=== PATIENT | male | born 1950 | race Caucasian/White ===

== ENCOUNTER 2021-08-28 10:34 | Inpatient (IN) | payer MEDICARE, BC, OTHER ==
[2021-08-28 12:06] LABS: #Eosinphils 0.2 10x3/uL (0.0-0.5); #Monocytes 0.8 10x3/uL (0.0-1.1); %Basophils 0.6 % (0.0-2.0); %Eosinophils 2.4 % (0.0-6.0); %Lymphocytes 20.4 % (18.0-47.0); %Monocytes 12.5 % (0.0-10.0); %Neutrophils 63.8 % (40.0-75.0); Hemoglobin 13.8 g/dL (13.5-17.5); Mean Corpuscular HGB CONC 33.7 g/dL (32.0-36.0); Mean Corpuscular Hemoglobin 30.9 pg (27.0-33.0); Mean Corpuscular Volume 91.5 fl (81.2-95.1); Mean Platelet Volume 10.6 fl (7.4-10.4); Platelet Count 150 10x3/uL (150-450); Red Blood Cell (RBC) Count 4.47 10x6/uL (4.32-5.72); White Blood Cell (WBC) Count 6.2 10x3/uL (3.5-10.5)
[2021-08-28 12:15] LABS: ALT (SGPT) 12 U/L (8-55); AST (SGOT) 11 U/L (5-34); Albumin 4.1 g/dL (3.4-4.8); Alkaline Phosphatase 73 U/L (40-110); Anion Gap 12 mmol/L (10-20); BUN (Urea Nitrogen) 17 mg/dL (8.4-25.7); Bilirubin, Total 0.5 mg/dL (0.2-1.2); Calc. Creatinine Clearance 0 mL/min (70-130); Carbon Dioxide 26 mmol/L (23-31); Chloride 105 mmol/L (98-107); Globulin 2.5 g/dL (2.4-3.5); Glucose 146 mg/dL (83-110); Potassium 4.4 mmol/L (3.5-5.1); Protein, Total 6.6 g/dL (5.8-8.1); Sodium 139 mmol/L (136-145)
[2021-08-28 13:10] LABS: SARS-CoV-2 NAA Rapid Test DETECTED (NotDetected)
[2021-08-28] MEDS: Ascorbic Acid 500 mg Chewable Tablet PO SCH (20:41)
[2021-08-28] MEDS: Fish Oil 1,000 MG CAP PO SCH (20:42)
[2021-08-28] MEDS: Sacubitril 49 MG/Valsartan 51 MG TABLET PO SCH (20:42)
[2021-08-28] MEDS: Doxepin HCl 10 MG CAP PO SCH (20:42)
[2021-08-29] MEDS: Sacubitril 49 MG/Valsartan 51 MG TABLET PO SCH ×2 (08:42→21:13)
[2021-08-29] MEDS: Spironolactone 25 MG TAB PO SCH (08:42)
[2021-08-29] MEDS: Aspirin 81 mg Enteric Coated Tablet PO SCH (08:42)
[2021-08-29] MEDS: Clopidogrel Bisulfate 75 MG TAB PO SCH (08:42)
[2021-08-29] MEDS: Nebivolol HCl 5 MG TAB PO SCH (08:42)
[2021-08-29] MEDS: Atorvastatin Calcium 40 MG TAB PO SCH (08:42)
[2021-08-29] MEDS: Ascorbic Acid 500 mg Chewable Tablet PO SCH ×2 (08:42→21:14)
[2021-08-29] MEDS: Fish Oil 1,000 MG CAP PO SCH ×2 (08:42→21:14)
[2021-08-29] MEDS: Furosemide 20 MG TAB PO SCH (08:43)
[2021-08-29] MEDS ORDERED: Enoxaparin Sodium 80 MG/0.8 ML SYRINGE SC SCH (17:30)
[2021-08-29] MEDS ORDERED: Dextrose 50% Abboject 50 ML SYRINGE IVP PRN (18:45)
[2021-08-29] MEDS ORDERED: Dextrose 5% in Water 1,000 ML IV PRN (18:45)
[2021-08-29] MEDS: HumaLOG 300 UNITS/3 ML VIAL SC PRN (18:58)
[2021-08-29] MEDS: Doxepin HCl 10 MG CAP PO SCH (21:14)
[2021-08-30] MEDS: Aspirin 81 mg Enteric Coated Tablet PO SCH (08:32)
[2021-08-30] MEDS: Sacubitril 49 MG/Valsartan 51 MG TABLET PO SCH ×2 (08:33→21:02)
[2021-08-30] MEDS: Nebivolol HCl 5 MG TAB PO SCH (08:34)
[2021-08-30] MEDS: Ascorbic Acid 500 mg Chewable Tablet PO SCH ×2 (08:35→21:02)
[2021-08-30] MEDS: Fish Oil 1,000 MG CAP PO SCH ×2 (08:35→21:46)
[2021-08-30] MEDS: Atorvastatin Calcium 40 MG TAB PO SCH (08:35)
[2021-08-30] MEDS: Clopidogrel Bisulfate 75 MG TAB PO SCH (08:35)
[2021-08-30] MEDS ORDERED: Heparin 10,000 UNITS/ 10 ML VIAL ONE (10:31)
[2021-08-30] MEDS ORDERED: Nitroglycerin 50 MG/250 ML BOT 0 ML ONE (10:31)
[2021-08-30] MEDS ORDERED: Lidocaine 1% (PF) 30 ML VIAL ONE ×2 (10:31)
[2021-08-30] MEDS ORDERED: Fentanyl 100 MCG/2 ML VIAL ONE (11:14)
[2021-08-30] MEDS ORDERED: Midazolam HCl 2 mg/2 ml Vial ONE ×2 (11:14→13:07)
[2021-08-30] MEDS ORDERED: Activase 2 MG VIAL ONE (13:20)
[2021-08-30] MEDS ORDERED: Sterile Water 10 ML ONE (13:23)
[2021-08-30] MEDS ORDERED: Activase 8 MG in Sodium Chloride 0.9% 100 ML CATH SCH (13:30)
[2021-08-30] MEDS: HumaLOG 300 UNITS/3 ML VIAL SC PRN ×2 (16:57→21:49)
[2021-08-30] MEDS: Acetaminophen 500 MG TAB PO PRN (17:35)
[2021-08-30] MEDS: Ondansetron PF 4 MG/2 ML Vial IVP PRN (17:35)
[2021-08-30] MEDS: Activase 8 MG in Sodium Chloride 0.9% 100 ML CATH SCH (21:07)
[2021-08-31] MEDS: Doxepin HCl 10 MG CAP PO SCH ×2 (00:07→21:48)
[2021-08-31] MEDS: Melatonin 3 MG TAB PO PRN ×2 (00:18→22:01)
[2021-08-31] MEDS: Acetaminophen 500 MG TAB PO PRN ×2 (02:11→14:50)
[2021-08-31 04:43] LABS: #Eosinphils 0.1 10x3/uL (0.0-0.5); #Monocytes 0.7 10x3/uL (0.0-1.1); #Neutrophils 7.9 10x3/uL (1.5-8.4); %Basophils 0.2 % (0.0-2.0); %Eosinophils 0.5 % (0.0-6.0); %Lymphocytes 8.2 % (18.0-47.0); %Monocytes 6.9 % (0.0-10.0); %Neutrophils 83.9 % (40.0-75.0); Hemoglobin 12.5 g/dL (13.5-17.5); Mean Corpuscular HGB CONC 34.3 g/dL (32.0-36.0); Mean Corpuscular Hemoglobin 31.5 pg (27.0-33.0); Mean Corpuscular Volume 91.7 fl (81.2-95.1); Mean Platelet Volume 10.7 fl (7.4-10.4); Platelet Count 111 10x3/uL (150-450); Red Blood Cell (RBC) Count 3.97 10x6/uL (4.32-5.72); White Blood Cell (WBC) Count 9.4 10x3/uL (3.5-10.5)
[2021-08-31 05:05] LABS: ALT (SGPT) 11 U/L (8-55); AST (SGOT) 12 U/L (5-34); Albumin 3.7 g/dL (3.4-4.8); Alkaline Phosphatase 62 U/L (40-110); Anion Gap 14 mmol/L (10-20); BUN (Urea Nitrogen) 18 mg/dL (8.4-25.7); Bilirubin, Total 0.6 mg/dL (0.2-1.2); Calc. Creatinine Clearance 104 mL/min (70-130); Calcium 8.4 mg/dL (7.8-10.44); Carbon Dioxide 23 mmol/L (23-31); Cardiac Risk 6.6 (Less than 4.5); Chloride 106 mmol/L (98-107); Cholesterol 230 mg/dl (< 200 Desired); Globulin 2.3 g/dL (2.4-3.5); Glucose 148 mg/dL (83-110); HDL Cholesterol 35 mg/dL (>60 Neg Risk); LDL Cholesterol, Calculated 162 mg/dL; Potassium 4.4 mmol/L (3.5-5.1); Sodium 139 mmol/L (136-145); Triglycerides 164 mg/dL (Less than 150)
[2021-08-31] MEDS: Activase 8 MG in Sodium Chloride 0.9% 100 ML CATH SCH ×2 (05:28→14:55)
[2021-08-31 08:33] LABS: INR-International Normal Ratio 1.5; PTT 31.8 sec (22.0-33.0); Prothrombin Time 16.5 sec (9.5-12.1)
[2021-08-31] MEDS: Furosemide 20 MG TAB PO SCH ×2 (08:50→13:07)
[2021-08-31] MEDS: Spironolactone 25 MG TAB PO SCH ×2 (08:51→13:07)
[2021-08-31] MEDS: Ascorbic Acid 500 mg Chewable Tablet PO SCH ×2 (09:28→22:01)
[2021-08-31] MEDS: Fish Oil 1,000 MG CAP PO SCH ×2 (09:28→21:49)
[2021-08-31] MEDS ORDERED: Fentanyl 100 MCG/2 ML VIAL ONE ×2 (10:45→15:41)
[2021-08-31] MEDS ORDERED: Heparin 10,000 UNITS/ 10 ML VIAL ONE ×2 (10:45→15:41)
[2021-08-31] MEDS ORDERED: Lidocaine 1% (PF) 30 ML VIAL ONE ×2 (10:45→15:41)
[2021-08-31] MEDS ORDERED: Midazolam HCl 2 mg/2 ml Vial ONE ×2 (10:46→15:41)
[2021-08-31] MEDS ORDERED: Ondansetron PF 4 MG/2 ML Vial ONE ×2 (11:12→18:27)
[2021-08-31] MEDS ORDERED: Atropine Sulfate 0.4 mg/1 ml Vial ONE ×2 (11:18→18:12)
[2021-08-31] MEDS ORDERED: Promethazine HCl 25 MG/ML VIAL ONE ×3 (11:24→21:37)
[2021-08-31] MEDS: Nebivolol HCl 5 MG TAB PO SCH (13:07)
[2021-08-31] MEDS: Atorvastatin Calcium 40 MG TAB PO SCH (13:07)
[2021-08-31] MEDS: Aspirin 81 mg Enteric Coated Tablet PO SCH ×2 (13:07→15:40)
[2021-08-31] MEDS: Clopidogrel Bisulfate 75 MG TAB PO SCH ×2 (13:07→15:40)
[2021-08-31] MEDS: Sacubitril 49 MG/Valsartan 51 MG TABLET PO SCH ×2 (13:07→21:49)
[2021-08-31] MEDS ORDERED: Nitroglycerin 50 MG/250 ML BOT 250 ML ONE (16:45)
[2021-08-31] MEDS ORDERED: Protamine Sulfate 50 MG/5 ML VIAL ONE (18:27)
[2021-08-31] MEDS: Ondansetron PF 4 MG/2 ML Vial IVP PRN (20:07)
[2021-08-31] MEDS ORDERED: Sodium Chloride 0.9% 1,000 ML IV SCH (21:15)
[2021-08-31] MEDS: Promethazine HCl 12.5 MG in Sodium Chloride 0.9% 50 ML IVPB SCH (21:43)
[2021-09-01] MEDS: Promethazine HCl 12.5 MG in Sodium Chloride 0.9% 50 ML IVPB SCH (00:15)
[2021-09-01] MEDS: Acetaminophen 500 MG TAB PO PRN (02:41)
[2021-09-01] MEDS: Ondansetron PF 4 MG/2 ML Vial IVP PRN (02:42)
[2021-09-01 08:35] LABS: #Monocytes 0.6 10x3/uL (0.0-1.1); #Neutrophils 13.4 10x3/uL (1.5-8.4); %Basophils 0.1 % (0.0-2.0); %Lymphocytes 4.6 % (18.0-47.0); %Monocytes 4.3 % (0.0-10.0); %Neutrophils 90.5 % (40.0-75.0); Hemoglobin 9.6 g/dL (13.5-17.5); Mean Corpuscular Hemoglobin 31.8 pg (27.0-33.0); Mean Corpuscular Volume 96.4 fl (81.2-95.1); Mean Platelet Volume 11.5 fl (7.4-10.4); Platelet Count 111 10x3/uL (150-450); RBC Distribution Width 13.3 % (11.5-14.5); Red Blood Cell (RBC) Count 3.02 10x6/uL (4.32-5.72); White Blood Cell (WBC) Count 14.8 10x3/uL (3.5-10.5)
[2021-09-01] MEDS: Furosemide 20 MG TAB PO SCH (08:58)
[2021-09-01] MEDS: Ezetimibe 10 MG TAB PO SCH (08:58)
[2021-09-01] MEDS: Ascorbic Acid 500 mg Chewable Tablet PO SCH ×2 (08:58→21:34)
[2021-09-01] MEDS: Spironolactone 25 MG TAB PO SCH (08:58)
[2021-09-01] MEDS: Atorvastatin Calcium 40 MG TAB PO SCH (08:58)
[2021-09-01] MEDS: Fish Oil 1,000 MG CAP PO SCH ×2 (08:58→21:34)
[2021-09-01] MEDS: Sacubitril 49 MG/Valsartan 51 MG TABLET PO SCH ×2 (08:58→21:33)
[2021-09-01] MEDS: Nebivolol HCl 5 MG TAB PO SCH (08:59)
[2021-09-01] MEDS: Aspirin 81 mg Enteric Coated Tablet PO SCH ×2 (08:59→09:15)
[2021-09-01] MEDS: Clopidogrel Bisulfate 75 MG TAB PO SCH ×2 (08:59→09:14)
[2021-09-01 09:01] VITALS: BMI 29.7
[2021-09-01] MEDS ORDERED: EPOETIN ALFA-EPBX (ESRD) 10,000 UNIT/ML VIAL SC SCH (12:00)
[2021-09-01 17:45] LABS: Anion Gap 18 mmol/L (10-20); BUN (Urea Nitrogen) 49 mg/dL (8.4-25.7); Calc. Creatinine Clearance 25 mL/min (70-130); Calcium 7.9 mg/dL (7.8-10.44); Carbon Dioxide 21 mmol/L (23-31); Chloride 104 mmol/L (98-107); Glucose 175 mg/dL (83-110); Magnesium 2.1 mg/dL (1.6-2.6); Potassium 4.8 mmol/L (3.5-5.1); Sodium 138 mmol/L (136-145)
[2021-09-01] MEDS: HumaLOG 300 UNITS/3 ML VIAL SC PRN ×2 (17:52→21:36)
[2021-09-01] MEDS ORDERED: Famotidine 20 MG TAB PO SCH (21:00)
[2021-09-01] MEDS: Doxepin HCl 10 MG CAP PO SCH (21:36)
[2021-09-02] MEDS: Ferrous Gluconate 324 MG TAB PO SCH (08:32)
[2021-09-02] MEDS: Ezetimibe 10 MG TAB PO SCH (08:32)
[2021-09-02] MEDS: Spironolactone 25 MG TAB PO SCH (08:32)
[2021-09-02] MEDS: Fish Oil 1,000 MG CAP PO SCH (08:32)
[2021-09-02] MEDS: Sacubitril 49 MG/Valsartan 51 MG TABLET PO SCH (08:34)
[2021-09-02] MEDS: Clopidogrel Bisulfate 75 MG TAB PO SCH (08:34)
[2021-09-02] MEDS: Ascorbic Acid 500 mg Chewable Tablet PO SCH (08:35)
[2021-09-02] MEDS: Famotidine 20 MG TAB PO SCH (08:35)
[2021-09-02] MEDS: Aspirin 81 mg Enteric Coated Tablet PO SCH (08:35)
[2021-09-02] MEDS: Furosemide 20 MG TAB PO SCH (08:35)
[2021-09-02] MEDS: Atorvastatin Calcium 40 MG TAB PO SCH (08:39)
[2021-09-02] MEDS: Nebivolol HCl 5 MG TAB PO SCH (08:45)
[2021-09-02] MEDS ORDERED: Sodium Chloride 0.9% 1,000 ML IV SCH (09:00)
[2021-09-02] MEDS ORDERED: Acetylcysteine 800 MG/4 ML VIAL PO SCH (09:15)
[2021-09-02] MEDS ORDERED: Apixaban 2.5 MG TAB PO SCH (09:30)
[2021-09-02 10:06] LABS: Bilirubin 1+ (Negative); Blood, Urine 10 (Negative); Clarity Cloudy (Clear); Glucose, Urine (Dipstick) Normal (Negative); Ketone, Urine 5 mg/dL (Negative); Leukocyte 25 (Negative); Nitrite Negative (Negative); Protein, Urine (Dipstick) 30 mg/dl (Neg-Trace); Urobilinogen Normal mg/dL (Less than 2)
[2021-09-02 10:28] LABS: Bacteria/HPF 2+ HPF (None Seen); RBC/HPF 0-3 HPF (0-3); Squamous Epithelial 0-3 HPF (0-3)
[2021-09-02 10:35] LABS: Anion Gap 14 mmol/L (10-20); BUN (Urea Nitrogen) 59 mg/dL (8.4-25.7); Calc. Creatinine Clearance 26 mL/min (70-130); Calcium 7.7 mg/dL (7.8-10.44); Carbon Dioxide 20 mmol/L (23-31); Chloride 104 mmol/L (98-107); Glucose 196 mg/dL (83-110); Potassium 4.3 mmol/L (3.5-5.1); Sodium 134 mmol/L (136-145)
[2021-09-02] MEDS ORDERED: Albumin 25% 25 GM/100 ML BOT IVPB SCH (11:15)
[2021-09-02] MEDS: Sodium Chloride 0.9% 1,000 ML IV SCH ×2 (13:35→21:15)
[2021-09-02] MEDS: Albumin 25% 25 GM/100 ML BOT IVPB SCH (18:20)
[2021-09-02] MEDS: Acetylcysteine 800 MG/4 ML VIAL PO SCH (20:44)
[2021-09-02] MEDS: Apixaban 2.5 MG TAB PO SCH (20:44)
[2021-09-02] MEDS: Doxepin HCl 10 MG CAP PO SCH (20:45)
[2021-09-03] MEDS: Albumin 25% 25 GM/100 ML BOT IVPB SCH ×3 (01:56→12:50)
[2021-09-03 04:27] LABS: Anion Gap 12 mmol/L (10-20); BUN (Urea Nitrogen) 45 mg/dL (8.4-25.7); Calc. Creatinine Clearance 64 mL/min (70-130); Calcium 7.7 mg/dL (7.8-10.44); Carbon Dioxide 22 mmol/L (23-31); Chloride 109 mmol/L (98-107); Glucose 118 mg/dL (83-110); Potassium 4.1 mmol/L (3.5-5.1); Sodium 139 mmol/L (136-145)
[2021-09-03] MEDS: Sodium Chloride 0.9% 1,000 ML IV SCH (08:54)
[2021-09-03] MEDS: Apixaban 2.5 MG TAB PO SCH ×2 (08:55→21:31)
[2021-09-03] MEDS: Ezetimibe 10 MG TAB PO SCH (08:55)
[2021-09-03] MEDS: Cholecalciferol 1,000 UNITS (25 MCG) TAB PO SCH (08:56)
[2021-09-03] MEDS: Clopidogrel Bisulfate 75 MG TAB PO SCH (08:56)
[2021-09-03] MEDS: Nebivolol HCl 5 MG TAB PO SCH (08:56)
[2021-09-03] MEDS: Atorvastatin Calcium 40 MG TAB PO SCH (08:56)
[2021-09-03] MEDS: Ferrous Gluconate 324 MG TAB PO SCH (08:58)
[2021-09-03] MEDS: Famotidine 20 MG TAB PO SCH (08:58)
[2021-09-03] MEDS: Acetylcysteine 800 MG/4 ML VIAL PO SCH ×2 (08:59→21:20)
[2021-09-03] MEDS ORDERED: Sodium Chloride 0.9% 1,000 ML IV SCH (11:15)
[2021-09-03] MEDS ORDERED: Acetaminophen 325 MG TAB PO PRN (15:40)
[2021-09-03] MEDS: Ubidecarenone 50 MG CAP PO SCH (21:21)
[2021-09-03] MEDS: Doxepin HCl 10 MG CAP PO SCH (21:31)
[2021-09-04 03:57] LABS: Anion Gap 13 mmol/L (10-20); BUN (Urea Nitrogen) 24 mg/dL (8.4-25.7); Calc. Creatinine Clearance 104 mL/min (70-130); Calcium 8.1 mg/dL (7.8-10.44); Carbon Dioxide 22 mmol/L (23-31); Chloride 110 mmol/L (98-107); Glucose 144 mg/dL (83-110); Potassium 4.2 mmol/L (3.5-5.1); Sodium 141 mmol/L (136-145)
[2021-09-04 04:05] LABS: #Eosinphils 0.3 10x3/uL (0.0-0.5); #Monocytes 0.8 10x3/uL (0.0-1.1); #Neutrophils 4.9 10x3/uL (1.5-8.4); %Basophils 0.4 % (0.0-2.0); %Eosinophils 3.9 % (0.0-6.0); %Lymphocytes 18.1 % (18.0-47.0); %Monocytes 11.3 % (0.0-10.0); %Neutrophils 65.4 % (40.0-75.0); Hemoglobin 5.9 g/dL (13.5-17.5); Mean Corpuscular HGB CONC 34.1 g/dL (32.0-36.0); Mean Corpuscular Hemoglobin 31.9 pg (27.0-33.0); Mean Corpuscular Volume 93.5 fl (81.2-95.1); Mean Platelet Volume 11.5 fl (7.4-10.4); Platelet Count 101 10x3/uL (150-450); RBC Distribution Width 13.8 % (11.5-14.5); Red Blood Cell (RBC) Count 1.85 10x6/uL (4.32-5.72); White Blood Cell (WBC) Count 7.4 10x3/uL (3.5-10.5)
[2021-09-04 05:33] LABS: Hemoglobin 6.5 g/dL (13.5-17.5)
[2021-09-04] MEDS: Famotidine 20 MG TAB PO SCH (08:43)
[2021-09-04] MEDS: Cholecalciferol 1,000 UNITS (25 MCG) TAB PO SCH (08:43)
[2021-09-04] MEDS: Ferrous Gluconate 324 MG TAB PO SCH (08:43)
[2021-09-04] MEDS: Ezetimibe 10 MG TAB PO SCH (08:43)
[2021-09-04] MEDS: Atorvastatin Calcium 40 MG TAB PO SCH (08:44)
[2021-09-04] MEDS: Ubidecarenone 50 MG CAP PO SCH ×3 (08:44→20:26)
[2021-09-04] MEDS: Acetylcysteine 800 MG/4 ML VIAL PO SCH ×2 (08:44→20:26)
[2021-09-04] MEDS ORDERED: Nebivolol HCl 5 MG TAB PO SCH (13:00)
[2021-09-04 16:00] LABS: Hemoglobin 9.7 g/dL (13.5-17.5); Mean Corpuscular HGB CONC 34.4 g/dL (32.0-36.0); Mean Corpuscular Hemoglobin 31.8 pg (27.0-33.0); Mean Corpuscular Volume 92.5 fl (81.2-95.1); Mean Platelet Volume 11.4 fl (7.4-10.4); Platelet Count 134 10x3/uL (150-450); RBC Distribution Width 14.6 % (11.5-14.5); Red Blood Cell (RBC) Count 3.05 10x6/uL (4.32-5.72); White Blood Cell (WBC) Count 8.8 10x3/uL (3.5-10.5)
[2021-09-04] MEDS: Doxepin HCl 10 MG CAP PO SCH (20:26)
[2021-09-05 05:42] LABS: Hemoglobin 8.6 g/dL (13.5-17.5); Mean Corpuscular Hemoglobin 31.7 pg (27.0-33.0); Mean Corpuscular Volume 90.8 fl (81.2-95.1); Mean Platelet Volume 11.4 fl (7.4-10.4); Platelet Count 134 10x3/uL (150-450); RBC Distribution Width 14.6 % (11.5-14.5); Red Blood Cell (RBC) Count 2.71 10x6/uL (4.32-5.72); White Blood Cell (WBC) Count 8.7 10x3/uL (3.5-10.5)
[2021-09-05] MEDS: Ubidecarenone 50 MG CAP PO SCH ×3 (08:12→20:11)
[2021-09-05] MEDS: Atorvastatin Calcium 40 MG TAB PO SCH (08:13)
[2021-09-05] MEDS: Cholecalciferol 1,000 UNITS (25 MCG) TAB PO SCH (08:13)
[2021-09-05] MEDS: Ezetimibe 10 MG TAB PO SCH (08:13)
[2021-09-05] MEDS: Famotidine 20 MG TAB PO SCH (08:13)
[2021-09-05] MEDS: Ferrous Gluconate 324 MG TAB PO SCH (08:15)
[2021-09-05] MEDS: Acetylcysteine 800 MG/4 ML VIAL PO SCH ×2 (08:15→20:11)
[2021-09-05] MEDS ORDERED: Nebivolol HCl 5 MG TAB PO SCH (09:00)
[2021-09-05] MEDS ORDERED: Clopidogrel Bisulfate 75 MG TAB PO SCH ×2 (10:00→11:15)
[2021-09-05] MEDS: Doxepin HCl 10 MG CAP PO SCH (20:11)
[2021-09-05 23:07] VITALS: BP 148/68; TEMP 99.7
[2021-09-06] MEDS ORDERED: Clopidogrel Bisulfate 75 MG TAB PO SCH (09:00)
== END 2021-09-04 21:38 | disposition home or self-care (01) | DRG 253 ==
LOC: CSHTELE 10:34 → UNDOADMIN 10:34 → CSHTELE 11:20 → OBSVTOIN 08-29 10:10 → CSHICU 08-30 13:47 → CSHTELE 09-02 07:55 → CSHICU 09-02 09:53 → CSHTELE 09-03 16:55 → CSHICU 09-03 20:53 → CSHTELE 09-04 18:46
PROVIDERS: ADMIT Specialist; ATTEND Specialist
PROC: 04FK3Z0 Fragmentation of Right Femoral Artery, Percutaneous Approach, Ultrasonic (ICD-10-PCS; principal; 2021-08-31)
PROC: 047L3Z1 Dilation of Left Femoral Artery using Drug-Coated Balloon, Percutaneous Approach (ICD-10-PCS; 2021-08-31)
PROC: 047N3Z1 Dilation of Left Popliteal Artery using Drug-Coated Balloon, Percutaneous Approach (ICD-10-PCS; 2021-08-31)
PROC: B40G1ZZ Plain Radiography of Left Lower Extremity Arteries using Low Osmolar Contrast (ICD-10-PCS; 2021-08-31)
PROC: 3E03317 Introduction of Other Thrombolytic into Peripheral Vein, Percutaneous Approach (ICD-10-PCS; 2021-08-31)
PROC: 06PY33Z Removal of Infusion Device from Lower Vein, Percutaneous Approach (ICD-10-PCS; 2021-08-31)
PROC: 06HY33Z Insertion of Infusion Device into Lower Vein, Percutaneous Approach (ICD-10-PCS; 2021-08-31)
DX: E11.51 Type 2 diabetes mellitus with diabetic peripheral angiopathy without gangrene (principal); I50.42 Chronic combined systolic (congestive) and diastolic (congestive) heart failure; N17.9 Acute kidney failure, unspecified; I70.223 Atherosclerosis of native arteries of extremities with rest pain, bilateral legs; I25.118 Atherosclerotic heart disease of native coronary artery with other forms of angina pectoris; I11.0 Hypertensive heart disease with heart failure; E78.2 Mixed hyperlipidemia; F41.9 Anxiety disorder, unspecified; I48.91 Unspecified atrial fibrillation; J44.9 Chronic obstructive pulmonary disease, unspecified; I70.421 Atherosclerosis of autologous vein bypass graft(s) of the extremities with rest pain, right leg; E66.3 Overweight; D64.9 Anemia, unspecified; T45.615A Adverse effect of thrombolytic drugs, initial encounter; E78.00 Pure hypercholesterolemia, unspecified; I95.9 Hypotension, unspecified; Z95.1 Presence of aortocoronary bypass graft; Z88.6 Allergy status to analgesic agent; Z95.810 Presence of automatic (implantable) cardiac defibrillator; I25.2 Old myocardial infarction; Z79.82 Long term (current) use of aspirin; Z79.899 Other long term (current) drug therapy; Z79.02 Long term (current) use of antithrombotics/antiplatelets; Z79.84 Long term (current) use of oral hypoglycemic drugs; Z68.29 Body mass index [BMI] 29.0-29.9, adult; Z79.01 Long term (current) use of anticoagulants; Z86.16 Personal history of COVID-19; N50.1 Vascular disorders of male genital organs
CPT/HCPCS: 36415; 36416; 36430; 37184; 37211; 37213; 37214; 37224; 75716; 75736; 75898; 76770; 80048; 80053; 80061; 81001; 83036; 83735; 85025; 85027; 85610; 85730; 86850; 86900; 86901; 93005; 93010; 94760; 99152; 99153; C1725; C1751; C1757; C1760; C2623; J0461; J1644; J1650; J1815; J2001; J2250; J2405; J2550; J2720; J2997; J3010; J3490; J7050; P9016; P9047; Q5105; U0002